=== PATIENT | male | born 1945 | race Caucasian/White ===

== ENCOUNTER 2021-07-23 11:00 | Observation (INO) | payer MEDICARE ==
[~2021-07-23] VITALS: Ht 188 cm; Wt 114.2 kg
[2021-07-23 12:30] LABS: BASOPHILS % (AUTO) 0.7 % (0.0-5.0); EOSINOPHILS % (AUTO) 3.5 % (0.0-8.0); HEMATOCRIT 45.1 % (42-54); LYMPHOCYTES % (AUTO) 22.5 % (21.0-51.0); MEAN CORPUSCULAR HEMOGLOBIN 30.9 pg (27.0-33.0); MEAN CORPUSCULAR HGB CONC 33.9 g/dL (32.0-36.0); MEAN CORPUSCULAR VOLUME 91.1 fL (79-99); MONOCYTES % (AUTO) 9.2 % (3.0-13.0); NEUTROPHILS % (AUTO) 63.4 % (40.0-77.0); PLATELET COUNT (AUTO) 110 K/uL (130-400); RED BLOOD CELL COUNT(AUTO) 4.95 MIL/uL (4.50-6.20); RED CELL DISTRIBUTION WIDTH 13.2 % (11.0-15.5)
[2021-07-23 12:35] LABS: APPEARANCE,URINE Clear (CLEAR); BILIRUBIN,URINE Negative (NEGATIVE); COLOR,URINE Yellow (YELLOW); GLUCOSE, URINE (UA) Negative (NEGATIVE); KETONES,URINE Negative (NEGATIVE); LEUKOCYTE ESTERASE ,URINE Negative (NEGATIVE); NITRATE,URINE Negative (NEGATIVE); OCCULT BLOOD,URINE Negative (NEGATIVE); PH,URINE 5.5 (5.0-8.0); PROTEIN,URINE Negative (NEGATIVE); UROBILINOGEN,URINE 0.2 mg/dL (0.2-1.0)
[2021-07-23 12:49] LABS: INR 1.18 (0.85-1.15); PROTHROMBIN TIME 12.7 SEC (9.6-11.6)
[2021-07-23 12:50] LABS: PARTIAL THROMBOPLASTIN TIME 25.4 SEC (26.3-35.5)
[2021-07-23 12:52] LABS: ALBUMIN 4.3 g/dL (3.5-5.0); BILIRUBIN,TOTAL 0.8 mg/dL (0.2-1.0); POTASSIUM 4.5 mmol/L (3.5-5.1); TOTAL PROTEIN, SERUM 7.8 g/dL (6.0-8.3)
[2021-07-24 10:21] VITALS: BP 198/105
[2021-07-24] MEDS ORDERED: ATOR20TA65 PO (10:53)
[2021-07-24] MEDS ORDERED: LISI10TA24 PO (10:53)
[2021-07-24] MEDS ORDERED: OMEG-148 PO (10:53)
[2021-07-24] MEDS ORDERED: MELA1TAB21 PO (10:53)
[2021-07-24] MEDS ORDERED: ZINC220T4 PO (10:53)
[2021-07-24] MEDS ORDERED: MULT-1203 PO (10:53)
[2021-07-24] MEDS ORDERED: METF-446 PO (10:53)
[2021-07-24] MEDS ORDERED: VITA1TAB22 PO (10:53)
[2021-07-24] MEDS ORDERED: LEVO100T12 PO (10:53)
[2021-07-25] VITALS (25 sets, daily range): BP systolic 127–176; BP diastolic 69–97
[2021-07-25] MEDS ORDERED: 0.9%NACL 1000ML 1,000 ML IV ONE (07:33)
[2021-07-25] MEDS: CEFAZOLIN SODIUM 1 GM VIAL IVP SCH ×3 (08:18→17:14)
[2021-07-25] MEDS ORDERED: SUCCINYLCHOLINE 200MG/10ML SYR ONE (08:23)
[2021-07-25] MEDS ORDERED: LIDOCAINE PF 100MG/5ML (2%) SYRINGE 5ML ONE (08:23)
[2021-07-25] MEDS ORDERED: GLYCOPYRROLATE 1 MG/5 ML SYRINGE ONE ×2 (08:23→11:52)
[2021-07-25] MEDS ORDERED: DEXAMETHASONE SOD PHOSPHATE 10MG/ML 1ML VIAL ONE (08:23)
[2021-07-25] MEDS ORDERED: MIDAZOLAM HCL 1 MG/ML 2ML VIAL ONE (08:23)
[2021-07-25] MEDS ORDERED: SUCCINYLCHOLINE CHLORIDE 20 MG/ML 10 ML VIAL ONE (08:23)
[2021-07-25] MEDS ORDERED: ONDANSETRON 4MG INJ ONE (08:23)
[2021-07-25] MEDS ORDERED: PROPOFOL 10 MG/ML 20ML VIAL IV ONE ×2 (08:23→12:39)
[2021-07-25] MEDS ORDERED: NEOSTIGMINE 5MG/5ML SYR IV ONE ×2 (08:23→11:52)
[2021-07-25] MEDS ORDERED: ROCURONIUM 10MG/1ML SYR 10 MG/ML ML ONE ×2 (08:24→09:39)
[2021-07-25] MEDS ORDERED: FENTANYL CITRATE PF 50 MCG/1 ML 2ML VIAL ONE ×3 (08:24→11:52)
[2021-07-25] MEDS ORDERED: VANCOMYCIN 1G VIAL ONE ×2 (08:39→11:13)
[2021-07-25] MEDS ORDERED: ROPIVACAINE 0.5% 5MG/ML 30ML IJ ONE (08:47)
[2021-07-25] MEDS ORDERED: DEXAMETHASONE SOD PHOSPHATE 4 MG/ML 1ML VIAL ONE (08:51)
[2021-07-25] MEDS ORDERED: MEPERIDINE-PF 25 MG/ML SYG ONE ×4 (10:12→12:43)
[2021-07-25] MEDS ORDERED: EPINEPHRINE PF 1MG AMP ONE (11:18)
[2021-07-25] MEDS ORDERED: KETOROLAC 30MG VIAL (30MG/ML) ONE (11:49)
[2021-07-25] MEDS ORDERED: LABETALOL 20MG VIAL IV ONE (12:10)
[2021-07-25] MEDS ORDERED: LIDOCAINE HCL-MPF 1% 2ML VIAL IJ PRN (12:30)
[2021-07-25] MEDS ORDERED: ONDANSETRON 4MG INJ IVP PRN (12:30)
[2021-07-25] MEDS ORDERED: POTASSIUM CHLORIDE 20MEQ/100ML 100 ML IV PRN (12:30)
[2021-07-25] MEDS ORDERED: HYDROCODONE/ACETAMINOPHEN 10/325 MG TAB PO PRN (12:30)
[2021-07-25] MEDS: ACETAMINOPHEN 500 MG TABLET PO SCH ×2 (12:30→21:09)
[2021-07-25] MEDS ORDERED: POTASSIUM CHLORIDE 10% ELIXIR 20 MEQ/15 ML UDCUP PO PRN (12:30)
[2021-07-25] MEDS ORDERED: HYDROCODONE/ACETAMINOPHEN 5/325 MG TAB PO PRN (12:30)
[2021-07-25] MEDS: 0.9%NACL 1000ML 1,000 ML IV SCH (12:30)
[2021-07-25] MEDS ORDERED: KCL 20 MEQ ERTAB PO PRN (12:30)
[2021-07-25] MEDS ORDERED: MORPHINE 4 MG SYG IVP PRN (12:30)
[2021-07-25] MEDS: INSULIN HUMULIN R 100 UNIT/ML 3ML SQ SCH ×2 (17:14→21:15)
[2021-07-25] MEDS: TRAMADOL HCL 50 MG TABLET PO SCH (17:26)
[2021-07-25] MEDS: FAMOTIDINE 20MG TAB PO SCH (21:07)
[2021-07-25] MEDS: ASPIRIN 81 MG EC TAB PO SCH (21:07)
[2021-07-26] MEDS: CEFAZOLIN SODIUM 1 GM VIAL IVP SCH (00:22)
[2021-07-26] MEDS: 0.9%NACL 1000ML 1,000 ML IV SCH (00:22)
[2021-07-26] MEDS: TRAMADOL HCL 50 MG TABLET PO SCH ×2 (00:25→06:48)
[2021-07-26 03:23] VITALS: BP 131/68
[2021-07-26] MEDS: INSULIN HUMULIN R 100 UNIT/ML 3ML SQ SCH (06:46)
[2021-07-26] MEDS: ACETAMINOPHEN 500 MG TABLET PO SCH (06:49)
[2021-07-26 07:30] VITALS: BP 137/73
[2021-07-26] MEDS ORDERED: POLYETHYLENE GLYCOL 3350 17 GM POWD.PACK PO SCH (09:00)
[2021-07-26] MEDS: FAMOTIDINE 20MG TAB PO SCH (09:57)
[2021-07-26] MEDS: ASPIRIN 81 MG EC TAB PO SCH (09:57)
[2021-07-28] MEDS ORDERED: BISACODYL 10 MG SUPP.RECT RC PRN (12:30)
== END 2021-07-26 11:10 | disposition home or self-care (01) ==
LOC: EDSTATUS 11:00 → DAHIP 07-25 06:02 → 4BH 07-25 13:23
PROVIDERS: ADMIT Orthopaedic Surgery Sports Medicine; ATTEND Orthopaedic Surgery Sports Medicine
DX: M17.11 Unilateral primary osteoarthritis, right knee (principal); Z20.822 Contact with and (suspected) exposure to COVID-19; I10 Essential (primary) hypertension; E66.9 Obesity, unspecified; E03.9 Hypothyroidism, unspecified; E11.9 Type 2 diabetes mellitus without complications; E78.00 Pure hypercholesterolemia, unspecified; Z68.32 Body mass index [BMI] 32.0-32.9, adult; Z79.899 Other long term (current) drug therapy
CPT/HCPCS: 0055T; 27446; 36415; 73560; 80053; 81003; 82948; 85025; 85610; 85730; 87635; 93005; 96374; 96375; 96376; 97039; G0378; G0379; J0171; J0330; J0690; J1100; J1815; J1885; J2001; J2175; J2250; J2270; J2405; J2704; J2710; J2795; J3010; J3370; J3490; J7030